=== PATIENT | male | born 1970 | race African-American/Black ===

== ENCOUNTER 2017-11-18 04:21 | Emergency (ER) | payer OTHER ==
[~2017-11-18] VITALS: Ht 180.3 cm; Wt 81.4 kg
[2017-11-18 05:29] LABS: HEMATOCRIT 42.6 % (38.0-50.0); HEMOGLOBIN 14.6 G/DL (12.5-16.6); MCHC 34.3 G/DL (30.0-36.0); MCV 81.8 FL (86-99); PLATELET COUNT 216 K/uL (156-360); RBC DIS.WIDTH-CV 12.3 % (11.8-14.6); RBC DIS.WIDTH-SD 36.7 % (39-53); RED BLOOD COUNT 5.21 M/uL (4.00-5.50); WHITE BLOOD COUNT 4.3 K/uL (4.1-10.2)
[2017-11-18 05:41] LABS: ALBUMIN 3.9 g/dL (3.2-4.8)
[2017-11-18 05:42] LABS: CHLORIDE 100 mEq/L (99-109); POTASSIUM 3.9 mEq/L (3.7-5.4); SODIUM 138 mEq/L (136-147)
[2017-11-18 05:44] LABS: GLUCOSE 95 mg/dL (70-99); TOTAL PROTEIN 7.6 g/dL (6.4-8.3)
[2017-11-18 05:46] LABS: TOTAL BILIRUBIN 0.4 mg/dL (0.0-1.0)
[2017-11-18 05:47] LABS: ALKALINE PHOSPHATASE 87 IU/L (3-129)
[2017-11-18 05:48] LABS: CREATININE 1.3 mg/dL (0.6-1.3); GFR ESTIMATE (CALCULATED) > 59 mL/min/ (58.99-99999)
[2017-11-18 05:49] LABS: AST (GOT) 31 IU/L (2-34); UREA NITROGEN (BUN) 21 mg/dL (9-23)
[2017-11-18 05:50] LABS: ALT (GPT) 24 IU/L (3-49); TROP-I INTERPRETATION NEGATIVE; TROPONIN-I < 0.01 ng/mL (0.0-0.30)
[2017-11-18 05:51] LABS: LIPASE 15 U/L (1.0-51.0)
[2017-11-18 06:39] LABS: APPEARANCE SL.HAZY ((CLEAR)); BILIRUBIN NEGATIVE; BLOOD SMALL; COLOR YELLOW ((YELLOW)); GLUCOSE (STRIP) NEGATIVE; KETONES 5; LEUKOCYTES NEGATIVE; NITRITE NEGATIVE; PROTEIN (STRIP) 100; SPECIFIC GRAVITY 1.048 (1.000-1.030); UROBILINOGEN 0.2 MG/DL (0.2-1.0)
[2017-11-18 06:45] LABS: BACTERIA NONE SEEN /HPF; EPITHELIAL CELLS NONE SEEN /HPF; MUCUS TRACE /LPF; RED BLOOD CELLS 0-5 /HPF (0-5); UCUL ADDED? NO; WHITE BLOOD CELLS 0-5 /HPF (0-5)
[2017-11-18 08:03] VITALS: BP 114/70
== END 2017-11-18 08:45 | disposition short-term general hospital (02) ==
LOC: EME 04:21 → EDBD 04:21 → EME 04:21
PROVIDERS: Emergency Medicine
DX: R55 Syncope and collapse (principal); S06.5X9A Traumatic subdural hemorrhage with loss of consciousness of unspecified duration, initial encounter; S00.01XA Abrasion of scalp, initial encounter; Y93.E1 Activity, personal bathing and showering; Y92.142 Bathroom in prison as the place of occurrence of the external cause; W19.XXXA Unspecified fall, initial encounter; M54.2 Cervicalgia; R05 Cough; R50.9 Fever, unspecified
CPT/HCPCS: 70450; 71275; 72125; 80053; 81003; 83690; 84484; 85027; 93005; 99281; 99285; J7030